=== PATIENT | female | born 1995 | race Native Hawaiian/Other Pacific Islander ===

== ENCOUNTER 2017-03-13 01:56 | Emergency (ER) | payer BC ==
[~2017-03-13] VITALS: Ht 152.4 cm; Wt 81.8 kg
[2017-03-13 02:04] VITALS: BP 118/78; TEMP 98.1
[2017-03-13] MEDS ORDERED: NEXPLANON68 MG ID (02:07)
[2017-03-13 02:47] LABS: COLLECTION METHOD CLEAN CATCH
[2017-03-13 02:59] LABS: PH 6 (5-8); URINE APPEARANCE Turbid; URINE BACTERIA None Seen /hpf; URINE BILIRUBIN Negative (NEGATIVE); URINE BLOOD 3+ (NEGATIVE); URINE GLUCOSE 1+ (NEGATIVE); URINE KETONE Negative (NEGATIVE); URINE LEUKOCYTE ESTERASE 2+ (NEGATIVE); URINE NITRATE Negative (NEGATIVE); URINE PROTEIN(semi-quant) 2+ (NEGATIVE); URINE RBC >50 /hpf; URINE UROBILINOGEN Negative (NEGATIVE)
[2017-03-13 03:00] LABS: URINE COLOR Red
[2017-03-13] MEDS ORDERED: CEPHALEXIN500 M1 PO (03:04)
[2017-03-13 03:30] VITALS: PULSE 88
== END 2017-03-13 03:33 | disposition home or self-care (01) ==
LOC: COL.ER 01:56
PROVIDERS: Nurse Practitioner
DX: N39.0 Urinary tract infection, site not specified (principal)